=== PATIENT | male | born 1975 | race Hispanic/Latino ===

== ENCOUNTER 2016-10-25 19:37 | Emergency (ER) | payer OTHER ==
[~2016-10-25] VITALS: Ht 172.7 cm; Wt 111.4 kg
[~2016-10-25 19:37] MED LIST: DOCU-41 PO; HYDR25SU31 RC; HYDR30CR76 RC; QUET100T69 PO
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
[2016-10-25 20:30] VITALS: BP 178/92; PULSE 92; RESP 16; O2SAT 96
[2016-10-25 20:49] LABS: BASOPHILS % (AUTO) 0.8 % (0-3); EOSINOPHILS % (AUTO) 0.6 % (0-5); MONOCYTES % (AUTO) 7.3 % (4-12); Mean Corpuscular Hemoglobin 29.2 pg (27.0-35.0); Mean Corpuscular Volume 86.3 fL (81-100); NEUTROPHILS % (AUTO) 66.2 % (40-74); Platelet Count 233 bil/L (150-400)
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
[2016-10-25 23:07] VITALS: BP 182/74; PULSE 78; RESP 14; O2SAT 99
== END 2016-10-25 23:04 | disposition home or self-care (01) ==
LOC: SED 19:37
DX: S09.90XA Unspecified injury of head, initial encounter (principal); S16.1XXA Strain of muscle, fascia and tendon at neck level, initial encounter; V43.52XA Car driver injured in collision with other type car in traffic accident, initial encounter; Y92.410 Unspecified street and highway as the place of occurrence of the external cause; Y93.89 Activity, other specified; Y99.8 Other external cause status; R51 Headache; M54.2 Cervicalgia; I10 Essential (primary) hypertension; F43.10 Post-traumatic stress disorder, unspecified; F17.200 Nicotine dependence, unspecified, uncomplicated